=== PATIENT | female | born 1995 | race Caucasian/White ===

== ENCOUNTER 2016-06-24 09:50 | Emergency (ER) | payer OTHER ==
[2016-06-24] MEDS ORDERED: METOCLOPRAMIDE 5 MG/ML 2 ML VIAL IVP STA (10:15)
[2016-06-24] MEDS ORDERED: SODIUM CHLORIDE 0.9% 2,000 ML IV STA (10:15)
--- NOTE | 2016-06-24 10:37 | ED ---
Nausea/Vomiting/Diarrhea HPI - General Chief complaint: Nausea/Vomiting/Diarrhea Stated complaint: vomiting, , x 7 days Time Seen by Provider: 06/24/16 10:13 Source: patient, RN notes reviewed Mode of arrival: ambulatory Limitations: no limitations - History of Present Illness Initial comments: 21-year-old female presents emergency Department chief complain nausea vomiting . Patient states that she is A0 and currently approximately 12 weeks . Patient states that she is currently seeing Dr. Rollins and has had an appointment with him. Patient states that she's had nausea vomiting other pregnancies. Patient states that she had some leftover antinausea medication at home which was helping but states that she is out. Patient denies any vaginal bleeding or vaginal discharge. She states she has no lower abdominal pain no abdominal cramping. Patient states that her stomach is just very upset and she says she drinks in it comes back up. Patient has fever, chills, chest pain, back pain. Patient states she is concerned about possible dehydration. - Related Data Previous Rx's Medication Instructions Recorded Metoclopramide [Reglan] 10 mg PO TID PRN #15 tab 06/24/16 Allergies Allergy/AdvReac Type Severity Reaction Status Date / Time bacitracin Allergy Rash/Hives Verified 06/24/16 11:48 [From Neosporin ([id number])] bacitracin zinc Allergy Rash/Hives Verified 06/24/16 11:48 [From Neosporin ([id number])] neomycin [Neomycin] Allergy Rash/Hives Verified 06/24/16 11:48 neomycin sulfate Allergy Rash/Hives Verified 06/24/16 11:48 [From Neosporin ([id number])] polymyxin B Allergy Rash/Hives Verified 06/24/16 11:48 [From Neosporin ([id number])] any generic pain meds Allergy Itching Uncoded 06/24/16 09:59 Review of Systems ROS Statement: Those systems with pertinent positive or pertinent negative responses have been documented in the HPI. ROS Other: All systems not noted in ROS Statement are negative. Past Medical History Past Medical History: Asthma Additional Past Medical History / Comment(s): PRESENTLY 16 WEEKS History of Any Multi-Drug Resistant Organisms: None Reported Past Surgical History: Back Surgery Past Anesthesia/Blood Transfusion Reactions: Motion Sickness, Postoperative Nausea & Vomiting (PONV) Past Psychological History: Anxiety, Depression Smoking Status: Never smoker Past Alcohol Use History: None Reported Past Drug Use History: None Reported General Exam Limitations: no limitations General appearance: alert, in no apparent distress ENT exam: Present: mucous membranes moist Respiratory exam: Present: normal lung sounds bilaterally. Absent: respiratory distress, wheezes, rales, rhonchi, stridor Cardiovascular Exam: Present: regular rate, normal rhythm, normal heart sounds. Absent: systolic murmur, diastolic murmur, rubs, gallop, clicks GI/Abdominal exam: Present: soft, tenderness (Mild epigastric), normal bowel sounds. Absent: distended, guarding, rebound, rigid Back exam: Absent: CVA tenderness (R), CVA tenderness (L) Neurological exam: Present: alert, oriented X3, CN II-XII intact Skin exam: Present: warm, dry, intact, normal color. Absent: rash Course Vital Signs 06/24/16 09:55 Temperature 96.7 F L Pulse Rate 92 Respiratory 18 Rate Blood Pressure 113/81 O2 Sat by Pulse 100 Oximetry Medical Decision Making - Medical Decision Making 21-year-old female presents emergency department for nausea vomiting . Patient states she is feeling much improved after antiemetics, fluids. Patient has no abdominal pain, cramping or any vaginal bleeding. Patient has OB /RESPITE COORDINATOR Dr. Rollins. Patient be discharged with Reglan return parameters were discussed. - Lab Data Result diagrams: 06/24/16 10:27 06/24/16 10:27 Lab Results 06/24/16 06/24/16 06/24/16 Range/Units 10:27 10:27 11:18 WBC 14.6 H (3.8-10.6) k/uL RBC 4.92 (3.80-5.40) m/uL Hgb 14.1 (11.4-16.0) gm/dL Hct 42.1 (34.0-46.0) % MCV 85.6 (80.0-100.0) fL MCH 28.6 (25.0-35.0) pg MCHC 33.4 (31.0-37.0) g/dL RDW 14.6 (11.5-15.5) % Plt Count 343 (150-450) k/uL Neutrophils % 87 % Lymphocytes % 7 % Monocytes % 4 % Eosinophils % 0 % Basophils % 0 % Neutrophils # 12.7 H (1.3-7.7) k/uL Lymphocytes # 1.0 (1.0-4.8) k/uL Monocytes # 0.6 (0-1.0) k/uL Eosinophils # 0.0 (0-0.7) k/uL Basophils # 0.0 (0-0.2) k/uL Sodium 137 (137-145) mmol/L Potassium 4.1 (3.5-5.1) mmol/L Chloride 103 (98-107) mmol/L Carbon Dioxide 20 L (22-30) mmol/L Anion Gap 14 mmol/L BUN 9 (7-17) mg/dL Creatinine 0.65 (0.52-1.04) mg/dL Est GFR (MDRD) Af Amer >60 (>60 ml/min/1.73 sqM) Est GFR (MDRD) Non-Af >60 (>60 ml/min/1.73 sqM) Glucose 104 H (74-99) mg/dL Calcium 9.4 (8.4-10.2) mg/dL Total Bilirubin 0.7 (0.2-1.3) mg/dL AST 22 (14-36) U/L ALT 18 (9-52) U/L Alkaline Phosphatase 80 (38-126) U/L Total Protein 7.1 (6.3-8.2) g/dL Albumin 3.7 (3.5-5.0) g/dL Amylase 48 (30-110) U/L Lipase 56 (23-300) U/L Urine Color Yellow Urine Appearance Cloudy H (Clear) Urine pH 6.0 (5.0-8.0) Ur Specific [place] 1.028 (1.001-1.035) Urine Protein 1+ H (Negative) Urine Glucose (UA) Negative (Negative) Urine Ketones 4+ H (Negative) Urine Blood Trace H (Negative) Urine Nitrite Negative (Negative) Urine Bilirubin 1+ H (Negative) Urine Urobilinogen 2.0 (<2.0) mg/dL Ur Leukocyte Esterase Negative (Negative) Urine RBC 6 H (0-5) /hpf Urine WBC 1 (0-5) /hpf Ur Squamous Epith Cells 13 H (0-4) /hpf Urine Mucus Moderate H (None) /hpf Disposition Clinical Impression: Mild dehydration, Nausea/vomiting in Disposition: HOME SELF-CARE Condition: Stable Instructions: Acute Nausea and Vomiting (ED) Additional Instructions: Please return to the Emergency Department if symptoms worsen or any other concerns. Prescriptions: Metoclopramide [Reglan] 10 mg PO TID PRN #15 tab PRN Reason: GERD Referrals: None,Stated [Primary Care Provider] - 1-2 days Time of Disposition: 12:20
[2016-06-24 10:41] LABS: Basophils % (A) 0 %; CH 29.3; CHCM 34.3; Eosinophils % (A) 0 %; HCT 42.1 % (34.0-46.0); HDW 2.49; HGB 14.1 gm/dL (11.4-16.0); Luc # (Auto) 0.29; Luc % (Auto) 2; Lymphocytes % (A) 7 %; MCH 28.6 pg (25.0-35.0); MCHC 33.4 g/dL (31.0-37.0); MCV 85.6 fL (80.0-100.0); Monocytes # (A) 0.6 k/uL (0-1.0); Monocytes % (A) 4 %; Neutrophils # (A) 12.7 k/uL (1.3-7.7); Neutrophils % (A) 87 %; RBC 4.92 m/uL (3.80-5.40); RDW 14.6 % (11.5-15.5); WBC 14.6 k/uL (3.8-10.6); WBC (Perox) 14.99
[2016-06-24 10:50] LABS: ALT 18 U/L (9-52); AST 22 U/L (14-36); Alkaline Phosphatase 80 U/L (38-126); Amylase 48 U/L (30-110); Anion Gap 14 mmol/L; Blood Urea Nitrogen 9 mg/dL (7-17); Calcium 9.4 mg/dL (8.4-10.2); Carbon Dioxide 20 mmol/L (22-30); Chloride 103 mmol/L (98-107); Glucose 104 mg/dL (74-99); Non-African American GFR(MDRD) >60 (>60 ml/min/1.73 sqM); Potassium 4.1 mmol/L (3.5-5.1); Sodium 137 mmol/L (137-145); Total Bilirubin 0.7 mg/dL (0.2-1.3); Total Protein 7.1 g/dL (6.3-8.2)
[2016-06-24 11:48] LABS: Appearance,Urine Cloudy (Clear); Bilirubin,Urine 1+ (Negative); Glucose,Urine (UA) Negative (Negative); Ketones,Urine 4+ (Negative); Leukocyte Esterase,Urine Negative (Negative); Mucus,Urine Moderate /hpf; Nitrite,Urine Negative (Negative); Particle Count 9905; Protein,Urine 1+ (Negative); RBC,Urine 6 /hpf (0-5); Specific Gravity,Urine 1.028 (1.001-1.035); Squamous Epithelial Cell,Urine 13 /hpf (0-4); UA Billing (MACRO vs. MICRO) MICRO; WBC,Urine 1 /hpf (0-5)
[2016-06-24] MEDS ORDERED: SODIUM CHLORIDE 0.9% 1,000 ML IV ONE (11:59)
[2016-06-24 13:16] VITALS: BP 128/70; PULSE 69; RESP 16; TEMP 98.7
== END 2016-06-24 13:15 | disposition home or self-care (01) ==
LOC: EC 09:50
DX: O99.281 Endocrine, nutritional and metabolic diseases complicating pregnancy, first trimester (principal); E86.0 Dehydration; Z3A.12 12 weeks gestation of pregnancy; Z88.1 Allergy status to other antibiotic agents; Z88.6 Allergy status to analgesic agent; Z88.8 Allergy status to other drugs, medicaments and biological substances
CPT/HCPCS: 36415; 80053; 82150; 83690; 85025; 81001; 99284; 96374; 96361 ×3; J2765

== ENCOUNTER 2016-09-13 08:03 | Outpatient (CLI) | payer OTHER ==
[2016-09-13 09:21] LABS: Appearance,Urine Clear (Clear); Bacteria,Urine Rare /hpf; Bilirubin,Urine Negative (Negative); Glucose,Urine (UA) Negative (Negative); Ketones,Urine 2+ (Negative); Leukocyte Esterase,Urine Small (Negative); Nitrite,Urine Negative (Negative); PH, Urine 8.5 (5.0-8.0); Particle Count 2342; Protein,Urine Trace (Negative); RBC,Urine 5 /hpf (0-5); Specific Gravity,Urine 1.014 (1.001-1.035); Squamous Epithelial Cell,Urine 1 /hpf (0-4); UA Billing (MACRO vs. MICRO) MICRO; Urobilinogen,Urine <2.0 mg/dL (<2.0); WBC,Urine 1 /hpf (0-5)
[2016-09-13 09:53] VITALS: BP 118/57; PULSE 96; RESP 16; TEMP 97.8
--- NOTE | 2016-09-13 09:59 | P.MSEPDOC ---
Presenting Problems - Arrival Data Date of Arrival on Unit: 09/13/16 Time of Arrival on Unit: 08:00 Mode of Transport: Wheelchair - Complaint Comment: vomiting Medical History - Information : 3 Para: 2 Term: 2 : 0 Abortions: Spontaneous or Elective: 0 Number of Living Children: 2 - Gestational Age Expected Date of Delivery: 12/31/16 Gestational Age by JOE (wks/days): 24 Weeks and 3 Days Review of Systems - Review of Systems Constitutional: No problems Breast: No problems ENT: No problems Cardiovascular: No problems Respiratory: No problems Gastrointestinal: No problems Genitourinary: No problems Musculoskeletal: No problems Neurological: No problems Skin: No problems Vital Signs - Temperature Temperature: 97.8 F Temperature Source: Oral - Pulse Pulse Oximetery Pulse Rate: 96 Pulse Assessment Method: Pulse Oximetry - Respirations Respiratory Rate: 16 Oxygen Delivery Method: Room Air - Blood Pressure Right Arm Blood Pressure: 118/57 Blood Pressure Mean: 77 Blood Pressure Source: Automatic Cuff Medical Screen Scoring (Pre) - Cervical Exam Dilation: Exam Deferred - Uterine Contractions Frequency: N/A Duration: N/A Intensity: N/A - Maternal Vital Signs Maternal Temperature: N/A Maternal Blood Pressure: N/A Maternal Respirations: N/A - Maternal Trauma Maternal Trauma: N/A - Assessment Heart Rate - NICHD Category: Category I (Normal) = 0 - Total Score Total Score (Pre): 0 - Level of Risk Level of Risk: Low (0-5) Physician Notification (Pre) - Physician Notified Physician Notified Date: 09/13/16 Physician Notified Time: 08:32 Physician/Practitioner Notifed:: erasto Spoke With: bahman Botello Order Received: Yes - Notification Comment Comment: pasucal bolaños. Physician Notification (Post) - Physician Notified Physician Notified Date: 09/13/16 Physician Notified Time: 09:53 Physician/Practitioner Notified:: erasto Spoke With: erasto Botello Order Received: Yes - Notification Comment Comment: mami results reviewed by dr maurer. oral hydration and follow up with Disposition - Disposition OB Disposition: Discharge to home Discharge Date: 09/13/16 Discharge Time: 09:54 I agree with the RN Medical Screening Exam: Yes Risk & Benefit of care provided described in d/c instruction: Yes Diagnosis: RELATED CONDITIONS, UNSPECIFIED, SECOND TRIMESTER
== END 2016-09-13 09:55 | disposition home or self-care (01) ==
LOC: FBPOP 08:03
PROVIDERS: ATTEND Obstetrics & Gynecology
DX: O26.91 Pregnancy related conditions, unspecified, first trimester (principal); Z3A.24 24 weeks gestation of pregnancy
CPT/HCPCS: 81001; G0463; 99213

== ENCOUNTER 2017-07-19 17:50 | Emergency (ER) | payer OTHER ==
[2017-07-19] MEDS ORDERED: KETOROLAC 60 MG/2 ML VIAL IM STA (18:34)
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
--- NOTE | 2017-07-19 19:15 | XR ---
EXAMINATION TYPE: XR cervical spine limited DATE OF EXAM: 07/19/2017 COMPARISON: NONE HISTORY: Pain TECHNIQUE: 3 views FINDINGS: Vertebra have normal spacing and alignment. Posterior elements are intact. Atlantoaxial fac et joint is normal. There are no cervical ribs. IMPRESSION: Normal cervical spine exam.
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
[2017-07-19] MEDS ORDERED: CYCLOBENZAPRINE 10MG STARTER 3 TAB BTL PO STA (19:25)
--- NOTE | 2017-07-19 19:25 | XR ---
EXAMINATION TYPE: XR lumbar spine 2 or 3V DATE OF EXAM: 07/19/2017 COMPARISON: NONE HISTORY: Back pain TECHNIQUE: 3 views FINDINGS: The lumbar vertebra have normal alignment. Posterior elements are intact and disc spaces ar e normal. Sacroiliac joints appear normal. IMPRESSION: Normal lumbar spine.
[2017-07-19 19:48] VITALS: BP 127/81; PULSE 99; RESP 18; TEMP 98.1
== END 2017-07-19 19:45 | disposition home or self-care (01) ==
LOC: EC 17:50
DX: M62.830 Muscle spasm of back (principal); M54.2 Cervicalgia; F17.200 Nicotine dependence, unspecified, uncomplicated; Z88.1 Allergy status to other antibiotic agents; Z88.6 Allergy status to analgesic agent; Z98.890 Other specified postprocedural states; V49.20XA Unspecified car occupant injured in collision with unspecified motor vehicles in nontraffic accident, initial encounter; Y92.481 Parking lot as the place of occurrence of the external cause
CPT/HCPCS: 99284; 96372; 72070; 72040; 72100; J1885

== ENCOUNTER 2020-04-08 16:18 | Emergency (ER) | payer OTHER ==
[2020-04-08 16:34] VITALS: BP 130/89; PULSE 84; RESP 18; TEMP 97.9
[2020-04-08] MEDS ORDERED: HYDROmorphone 0.5 MG/0.5 ML SYRINGE IM STA (16:43)
--- NOTE | 2020-04-08 18:10 | ED ---
General Adult HPI - General Chief complaint: Extremity Injury, Upper Stated complaint: Fall, L side pain Time Seen by Provider: 04/08/20 16:35 Source: patient Mode of arrival: wheelchair Limitations: no limitations - History of Present Illness Initial comments: 24 year old female presents to the emergency room for a chief complaint of left shoulder pain. Patient reports that 2 days ago he fell off the side of her porch when her dog ran into her. Patient landed on her left side. Did not hit her head or neck. Patient states over the past 2 days she has had shoulder pain and left-sided upper back pain. Patient states the pain does not seem to be going away so she decided to be evaluated.Patient has no other complaints at this time including shortness of breath, chest pain, abdominal pain, nausea or vomiting, headache, or visual changes. - Related Data Previous Rx's Medication Instructions Recorded Metoclopramide [Reglan] 10 mg PO TID PRN #15 tab 06/24/16 Cyclobenzaprine [Flexeril] 10 mg PO TID #12 tab 07/19/17 Naproxen [EC-Naprosyn] 500 mg PO BID #20 tablet. 07/19/17 Allergies Allergy/AdvReac Type Severity Reaction Status Date / Time bacitracin Allergy Rash/Hives Verified 04/08/20 16:34 [From Neosporin ([id number])] bacitracin zinc Allergy Rash/Hives Verified 04/08/20 16:34 [From Neosporin ([id number]-[id number])] neomycin [Neomycin] Allergy Rash/Hives Verified 04/08/20 16:34 neomycin sulfate Allergy Rash/Hives Verified 04/08/20 16:34 [From Neosporin ([id number])] polymyxin B Allergy Rash/Hives Verified 04/08/20 16:34 [From Neosporin ([id number])] any generic pain meds Allergy Itching Uncoded 04/08/20 16:34 Review of Systems ROS Statement: Those systems with pertinent positive or pertinent negative responses have been documented in the HPI. ROS Other: All systems not noted in ROS Statement are negative. Past Medical History Past Medical History: Asthma Additional Past Medical History / Comment(s): PRESENTLY 16 WEEKS History of Any Multi-Drug Resistant Organisms: None Reported Past Surgical History: Back Surgery Past Anesthesia/Blood Transfusion Reactions: Motion Sickness, Postoperative Nausea & Vomiting (PONV) Past Psychological History: Anxiety, Depression Past Alcohol Use History: None Reported Past Drug Use History: Marijuana General Exam Limitations: no limitations General appearance: alert, anxious Head exam: Present: atraumatic, normal inspection Eye exam: Present: normal appearance, PERRL, EOMI. Absent: scleral icterus, conjunctival injection ENT exam: Present: normal exam, mucous membranes moist Neck exam: Present: normal inspection, full ROM. Absent: tenderness, meningismus, lymphadenopathy Respiratory exam: Present: normal lung sounds bilaterally. Absent: respiratory distress, wheezes, rales, rhonchi, stridor Cardiovascular Exam: Present: regular rate, normal rhythm, normal heart sounds. Absent: systolic murmur, diastolic murmur, rubs, gallop, clicks GI/Abdominal exam: Present: soft, normal bowel sounds. Absent: distended, tenderness, guarding, rebound, rigid Extremities exam: Present: other (Sensation intact in the left upper extremity, radial pulse 2+. No obvious deformity. 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 Absent: full ROM (Patient refuses to try to move the left shoulder secondary to pain.) Back exam: Present: paraspinal tenderness, vertebral tenderness (Mid thoracic spine tenderness generalized in nature as well as left-sided upper back ten derness). Absent: CVA tenderness (R), CVA tenderness (L) Neurological exam: Present: alert Course Vital Signs 04/08/20 16:28 Temperature 97.9 F Pulse Rate 84 Respiratory 18 Rate Blood Pressure 130/89 O2 Sat by Pulse 99 Oximetry Medical Decision Making - Medical Decision Making X-ray of the humerus shoulder thoracic spine and chest are negative. Neurovascular status intact left upper extremity. At this time patient will follow up with her orthopedic doctor. Referral given. She will take Motrin and Tylenol for pain. She'll return here for any worsening symptoms. - Lab Data Lab Results 04/08/20 04/08/20 Range/Units 17:01 17:01 Urine Color Yellow Urine Appearance Cloudy H (Clear) Urine pH 7.0 (5.0-8.0) Ur Specific [place] 1.021 (1.001-1.035) Urine Protein Negative (Negative) Urine Glucose (UA) Negative (Negative) Urine Ketones Negative (Negative) Urine Blood Negative (Negative) Urine Nitrite Negative (Negative) Urine Bilirubin Negative (Negative) Urine Urobilinogen <2.0 (<2.0) mg/dL Ur Leukocyte Esterase Negative (Negative) Urine RBC 3 (0-5) /hpf Urine WBC 3 (0-5) /hpf Ur Squamous Epith Cells 7 H (0-4) /hpf Amorphous Sediment Moderate H (None) /hpf Urine Mucus Rare H (None) /hpf Urine HCG, Qual Not Detected (Not Detectd) Disposition Clinical Impression: Shoulder pain, left Disposition: HOME SELF-CARE Condition: Good Instructions (If sedation given, give patient instructions): Shoulder Pain (ED) Additional Instructions: Please take Motrin and Tylenol for pain. Please follow-up with orthopedics. Return to the emergency room for any worsening symptoms. Is patient prescribed a controlled substance at d/c from ED?: No Referrals: Sarbjit Muniz MD [STAFF PHYSICIAN] - 1-2 days Time of Disposition: 18:38
--- NOTE | 2020-04-08 18:15 | XR ---
Result: Clinical History: Pain status post fall downstairs. Comparison: None available. Technique: 3 views of the left shoulder. 2 views of the left humerus. Findings: The bone mineralization is appropriate for age. No acute fracture or dislocation is seen. The acromioclavicular and glenohumeral joints are preserve d . The humeral head is well-seated in the glenoid. The visualized lung is clear. Impression: No acute osseous abnormality of the left shoulder or humerus.
--- NOTE | 2020-04-08 18:17 | XR ---
Result: History: Pain status post fall. Comparison: None available. Technique: 3 views of the thoracic spine. Findings: The bone mineralization is normal. There is no acute fracture or subluxation. The vertebral body heights are preserved throughout the i aditi thoracic spine. The vertebral elements are in anatomic alignment. The disc heights are mainta ined throughout the imaged spine. Impression: No acute fracture or subluxation of the thoracic spine.
--- NOTE | 2020-04-08 18:17 | XR ---
EXAMINATION TYPE: XR chest 1V DATE OF EXAM: 04/08/2020 COMPARISON: NONE HISTORY: Pain status post fall. TECHNIQUE: Single frontal view of the chest is obtained. FINDINGS: There is no focal air space opacity, pleural effusion, or pneumothorax seen. The cardiac silhouette size is within normal limits. The osseous structures are intact. IMPRESSION: No acute process.
[2020-04-08 18:30] LABS: Amorphous Sediment,Urine Moderate /hpf; Appearance,Urine Cloudy (Clear); Bilirubin,Urine Negative (Negative); Blood,Urine Negative (Negative); Color,Urine Yellow; Glucose,Urine (UA) Negative (Negative); Ketones,Urine Negative (Negative); Leukocyte Esterase,Urine Negative (Negative); Mucus,Urine Rare /hpf; Nitrite,Urine Negative (Negative); Protein,Urine Negative (Negative); RBC,Urine 3 /hpf (0-5); Specific Gravity,Urine 1.021 (1.001-1.035); Squamous Epithelial Cell,Urine 7 /hpf (0-4); Urobilinogen,Urine <2.0 mg/dL (<2.0); WBC,Urine 3 /hpf (0-5)
== END 2020-04-08 18:58 | disposition home or self-care (01) ==
LOC: EC 16:18
DX: M25.512 Pain in left shoulder (principal); M54.6 Pain in thoracic spine; Z88.8 Allergy status to other drugs, medicaments and biological substances; Z88.1 Allergy status to other antibiotic agents; Z88.2 Allergy status to sulfonamides; W10.9XXA Fall (on) (from) unspecified stairs and steps, initial encounter
CPT/HCPCS: 81001; 81025; 72072; 73030; 73060; 71045; 99283; 96372; J1170

== ENCOUNTER 2021-08-20 22:31 | Emergency (ER) | payer OTHER ==
[2021-08-20 22:38] VITALS: BP 136/97; PULSE 62; RESP 18; TEMP 98
[2021-08-20 22:41] LABS: Glucose,Whole Blood 139 mg/dL (75-99)
[2021-08-21] MEDS ORDERED: FAMOTIDINE 20 MG/2 ML VIAL IV STA (01:03)
[2021-08-21] MEDS ORDERED: KETOROLAC 15 MG/ML 1 ML VIAL IVP STA (01:03)
[2021-08-21] MEDS ORDERED: ONDANSETRON 4 MG/2 ML VIAL IVP STA (01:03)
[2021-08-21] MEDS ORDERED: SODIUM CHLORIDE 0.9% 1,000 ML IV STA (01:03)
[2021-08-21 02:24] LABS: Basophils # (A) 0.1 k/uL (0-0.2); Basophils % (A) 1 %; Eosinophils % (A) 0 %; HCT 49.3 % (34.0-46.0); HGB 16.1 gm/dL (11.4-16.0); Lymphocytes # (A) 0.4 k/uL (1.0-4.8); Lymphocytes % (A) 3 %; MCH 28.9 pg (25.0-35.0); MCHC 32.6 g/dL (31.0-37.0); MCV 88.5 fL (80.0-100.0); Mean Platelet Volume 7.3; Monocytes # (A) 0.8 k/uL (0-1.0); Monocytes % (A) 6 %; Neutrophils # (A) 11.8 k/uL (1.3-7.7); Neutrophils % (A) 88 %; Platelet Count 281 k/uL (150-450); RBC 5.57 m/uL (3.80-5.40); RDW 12.9 % (11.5-15.5); WBC 13.4 k/uL (3.8-10.6)
--- NOTE | 2021-08-21 02:30 | ED ---
Abdominal Pain HPI - General Chief Complaint: Abdominal Pain Stated Complaint: Weakness/Vomiting Time Seen by Provider: 08/21/21 00:51 Source: patient, RN notes reviewed Mode of arrival: wheelchair Limitations: no limitations - History of Present Illness Initial Comments: This is a 26-year-old female presents emergency department for abdominal pain, nausea, vomiting, and feeling generally unwell. States the symptoms have been present for a few days. Patient is very groggy and slow to answer questions on examination. She does not appear to be in any significant distress on examination. Denies any fevers, chills, sore throat, cough, dyspnea, chest pain, palpitations, diarrhea, back pain, or headaches. MD Complaint: abdominal pain Onset/Timin -: days(s) Location: diffuse - Related Data Previous Rx's Medication Instructions Recorded Metoclopramide [Reglan] 10 mg PO TID PRN #15 tab 06/24/16 Cyclobenzaprine [Flexeril] 10 mg PO TID #12 tab 07/19/17 Naproxen [EC-Naprosyn] 500 mg PO BID #20 tablet. 07/19/17 Ondansetron Odt [Zofran Odt] 4 mg PO Q8HR PRN #20 tab 08/21/21 Allergies Allergy/AdvReac Type Severity Reaction Status Date / Time bacitracin Allergy Rash/Hives Verified 04/08/20 16:34 [From Neosporin ([id number])] bacitracin zinc Allergy Rash/Hives Verified 04/08/20 16:34 [From Neosporin ([id number])] neomycin [Neomycin] Allergy Rash/Hives Verified 04/08/20 16:34 neomycin sulfate Allergy Rash/Hives Verified 04/08/20 16:34 [From Neosporin ([id number])] polymyxin B Allergy Rash/Hives Verified 04/08/20 16:34 [From Neosporin ([id number])] any generic pain meds Allergy Itching Uncoded 04/08/20 16:34 Review of Systems ROS Statement: Those systems with pertinent positive or pertinent negative responses have been documented in the HPI. ROS Other: All systems not noted in ROS Statement are negative. Past Medical History Past Medical History: Asthma Additional Past Medical History / Comment(s): PRESENTLY 14 WEEKS History of Any Multi-Drug Resistant Organisms: None Reported Past Surgical History: Back Surgery Past Anesthesia/Blood Transfusion Reactions: Motion Sickness, Postoperative Nausea & Vomiting (PONV) Past Psychological History: Anxiety, Depression Smoking Status: Unknown if ever smoked Past Alcohol Use History: None Reported Past Drug Use History: Marijuana General Exam Limitations: no limitations General appearance: alert, in distress Head exam: Present: atraumatic, normocephalic, normal inspection Respiratory exam: Present: normal lung sounds bilaterally. Absent: respiratory distress, wheezes, rales, rhonchi, stridor Cardiovascular Exam: Present: regular rate, normal rhythm, normal heart sounds. Absent: systolic murmur, diastolic murmur, rubs, gallop, clicks GI/Abdominal exam: Present: soft, normal bowel sounds. Absent: distended, tenderness, guarding, rebound, rigid Neurological exam: Present: alert, oriented X3, CN II-XII intact Psychiatric exam: Present: normal affect, normal mood Skin exam: Present: warm, dry, intact, normal color. Absent: rash Course Vital Signs 08/20/21 22:35 Temperature 98.0 F Pulse Rate 62 Respiratory 18 Rate Blood Pressure 136/97 O2 Sat by Pulse 98 Oximetry Medical Decision Making - Medical Decision Making This is a 26-year-old female who presents to the emergency department for nausea, vomiting, abdominal pain, and a general feeling of being unwell. Lab work reveals an elevated white blood cell count, which may be reactive or related to infection. Patient also noted to test positive for influenza A. She was treated with IV fluids, Zofran, Toradol, and Benadryl in the emergency department. She is out of the timeframe where Tamiflu can be prescribed. Upon reevaluation, patient states that she felt better. Patient given starter pack for Zofran, and prescription for Zofran was sent to her pharmacy. Return precautions reviewed in depth, the patient is instructed to return to the emergency department with any new, worsening, or concerning symptoms. Patient verbalized understanding. This case was discussed in detail with the attending ED physician. Presentation, findings, and treatment plan discussed in detail as well. - Lab Data Result diagrams: 08/21/21 01:39 08/21/21 01:39 Lab Results 08/20/21 08/21/21 08/21/21 Range/Units 22:38 01:38 01:39 WBC 13.4 H (3.8-10.6) k/uL RBC 5.57 H (3.80-5.40) m/uL Hgb 16.1 H (11.4-16.0) gm/dL Hct 49.3 H (34.0-46.0) % MCV 88.5 (80.0-100.0) fL MCH 28.9 (25.0-35.0) pg MCHC 32.6 (31.0-37.0) g/dL RDW 12.9 (11.5-15.5) % Plt Count 281 (150-450) k/uL MPV 7.3 Neutrophils % 88 % Lymphocytes % 3 % Monocytes % 6 % Eosinophils % 0 % Basophils % 1 % Neutrophils # 11.8 H (1.3-7.7) k/uL Lymphocytes # 0.4 L (1.0-4.8) k/uL Monocytes # 0.8 (0-1.0) k/uL Eosinophils # 0.0 (0-0.7) k/uL Basophils # 0.1 (0-0.2) k/uL Sodium (137-145) mmol/L Potassium (3.5-5.1) mmol/L Chloride (98-107) mmol/L Carbon Dioxide (22-30) mmol/L Anion Gap mmol/L BUN (7-17) mg/dL Creatinine (0.52-1.04) mg/dL Est GFR (CKD-EPI)AfAm (>60 ml/min/1.73 sqM) Est GFR (CKD-EPI)NonAf (>60 ml/min/1.73 sqM) Glucose (74-99) mg/dL POC Glucose (mg/dL) 139 H (75-99) mg/dL POC Glu [employer] ID Odilon Mckinley Calcium (8.4-10.2) mg/dL Total Bilirubin (0.2-1.3) mg/dL AST (14-36) U/L ALT (4-34) U/L Alkaline Phosphatase (38-126) U/L Total Protein (6.3-8.2) g/dL Albumin (3.5-5.0) g/dL Amylase (30-110) U/L Lipase (23-300) U/L Coronavirus (PCR) Not Detected (Not Detectd) Influenza Type A RNA (Not Detectd) Influenza Type B (PCR) (Not Detectd) 08/21/21 08/21/21 Range/Units 01:39 01:39 WBC (3.8-10.6) k/uL RBC (3.80-5.40) m/uL Hgb (11.4-16.0) gm/dL Hct (34.0-46.0) % MCV (80.0-100.0) fL MCH (25.0-35.0) pg MCHC (31.0-37.0) g/dL RDW (11.5-15.5) % Plt Count (150-450) k/uL MPV Neutrophils % % Lymphocytes % % Monocytes % % Eosinophils % % Basophils % % Neutrophils # (1.3-7.7) k/uL Lymphocytes # (1.0-4.8) k/uL Monocytes # (0-1.0) k/uL Eosinophils # (0-0.7) k/uL Basophils # (0-0.2) k/uL Sodium 136 L (137-145) mmol/L Potassium 3.8 (3.5-5.1) mmol/L Chloride 101 (98-107) mmol/L Carbon Dioxide 20 L (22-30) mmol/L Anion Gap 15 mmol/L BUN 14 (7-17) mg/dL Creatinine 0.83 (0.52-1.04) mg/dL Est GFR (CKD-EPI)AfAm >90 (>60 ml/min/1.73 sqM) Est GFR (CKD-EPI)NonAf >90 (>60 ml/min/1.73 sqM) Glucose 105 H (74-99) mg/dL POC Glucose (mg/dL) (75-99) mg/dL POC Glu Executive [employer]iter ID Calcium 9.1 (8.4-10.2) mg/dL Total Bilirubin 0.5 (0.2-1.3) mg/dL AST 39 H (14-36) U/L ALT 28 (4-34) U/L Alkaline Phosphatase 114 (38-126) U/L Total Protein 7.9 (6.3-8.2) g/dL Albumin 4.5 (3.5-5.0) g/dL Amylase 58 (30-110) U/L Lipase 68 (23-300) U/L Coronavirus (PCR) (Not Detectd) Influenza Type A RNA Detected H (Not Detectd) Influenza Type B (PCR) Not Detected (Not Detectd) Disposition Clinical Impression: Influenza A, Nausea and vomiting Disposition: HOME SELF-CARE Instructions (If sedation given, give patient instructions): Influenza (ED), Acute Nausea and Vomiting (ED), Abdominal Pain (ED) Additional Instructions: Return to the emergency department with any new, worsening, or concerning symptoms. Take the Zofran up to every 8hrs as needed for nausea and vomiting. Continue with symptomatic management, including remaining well-hydrated and alternating with Tylenol and ibuprofen as needed for pain and fevers. Follow up with your primary care provider in 1-2 days. Prescriptions: Ondansetron Odt [Zofran Odt] 4 mg PO Q8HR PRN #20 tab PRN Reason: Nausea And Vomiting Is patient prescribed a controlled substance at d/c from ED?: No Referrals: None,Stated [Primary Care Provider] - 1-2 days
[2021-08-21 02:40] LABS: ALT 28 U/L (4-34); AST 39 U/L (14-36); African American GFR (CKD) >90 (>60 ml/min/1.73 sqM); Albumin 4.5 g/dL (3.5-5.0); Alkaline Phosphatase 114 U/L (38-126); Amylase 58 U/L (30-110); Anion Gap 15 mmol/L; Blood Urea Nitrogen 14 mg/dL (7-17); Calcium 9.1 mg/dL (8.4-10.2); Carbon Dioxide 20 mmol/L (22-30); Chloride 101 mmol/L (98-107); Glucose 105 mg/dL (74-99); Lipase 68 U/L (23-300); Non-African American GFR(CKD) >90 (>60 ml/min/1.73 sqM); Potassium 3.8 mmol/L (3.5-5.1); Sodium 136 mmol/L (137-145); Total Bilirubin 0.5 mg/dL (0.2-1.3); Total Protein 7.9 g/dL (6.3-8.2)
[2021-08-21] MEDS ORDERED: ONDANSETRON 4 MG ODT STARTER PACK 2 TAB BTL PO STA (03:03)
== END 2021-08-21 03:33 | disposition home or self-care (01) ==
LOC: EC 22:31
DX: Z20.822 Contact with and (suspected) exposure to COVID-19 (principal); R11.2 Nausea with vomiting, unspecified; J10.1 Influenza due to other identified influenza virus with other respiratory manifestations; J45.909 Unspecified asthma, uncomplicated; Z88.1 Allergy status to other antibiotic agents; Z88.8 Allergy status to other drugs, medicaments and biological substances
CPT/HCPCS: 36415 ×2; 80053; 82150; 83690; 85025; 84702; 87502; 87635; 99284; 96374; 96375; J2405; J1885; S0119

== ENCOUNTER 2022-09-14 09:56 | Emergency (ER) | payer OTHER ==
--- NOTE | 2022-09-14 10:17 | ED ---
General Adult HPI - General Chief complaint: Extremity Injury, Upper Stated complaint: Right Arm Injury Time Seen by Provider: 09/14/22 10:02 Source: patient, RN notes reviewed Mode of arrival: ambulatory Limitations: no limitations - History of Present Illness Initial comments: 27-year-old female presents emergency department chief complaint of right elbow pain x3 days. Patient states that she had a recent fall on Sunday and landed on her right side and is now having pain in her right elbow. She reports the pain is worse with movement of the elbow. Reports to taking tylenol and motrin for pain with minimal improvement. She reports no other injury. Patient states she is generally healthy and takes no daily medications. - Related Data Previous Rx's Medication Instructions Recorded Metoclopramide [Reglan] 10 mg PO TID PRN #15 tab 06/24/16 Cyclobenzaprine [Flexeril] 10 mg PO TID #12 tab 07/19/17 Naproxen [EC-Naprosyn] 500 mg PO BID #20 tablet. 07/19/17 Ondansetron Odt [Zofran Odt] 4 mg PO Q8HR PRN #20 tab 08/21/21 Allergies Allergy/AdvReac Type Severity Reaction Status Date / Time bacitracin Allergy Rash/Hives Verified 09/14/22 10:02 [From Neosporin ([id number])] bacitracin zinc Allergy Rash/Hives Verified 09/14/22 10:02 [From Neosporin ([id number])] neomycin [Neomycin] Allergy Rash/Hives Verified 09/14/22 10:02 neomycin sulfate Allergy Rash/Hives Verified 09/14/22 10:02 [From Neosporin ([id number])] polymyxin B Allergy Rash/Hives Verified 09/14/22 10:02 [From Neosporin ([id number])] any generic pain meds Allergy Itching Uncoded 09/14/22 10:02 Review of Systems ROS Statement: Those systems with pertinent positive or pertinent negative responses have been documented in the HPI. ROS Other: All systems not noted in ROS Statement are negative. Past Medical History Past Medical History: Asthma Additional Past Medical History / Comment(s): PRESENTLY 14 WEEKS History of Any Multi-Drug Resistant Organisms: None Reported Past Surgical History: Back Surgery Past Anesthesia/Blood Transfusion Reactions: Motion Sickness, Postoperative Nausea & Vomiting (PONV) Past Psychological History: Anxiety, Depression Smoking Status: Never smoker Past Alcohol Use History: Occasional Past Drug Use History: Marijuana General Exam Limitations: no limitations Course Vital Signs 09/14/22 09/14/22 09:59 11:46 Temperature 98.2 F 98 F Pulse Rate 77 74 Respiratory 18 16 Rate Blood Pressure 134/85 130/86 O2 Sat by Pulse 100 100 Oximetry Medical Decision Making - Medical Decision Making Was pt. sent in by a medical professional or institution (LAKISHA Dorsey, AVP, urgent care, hospital, or residential...) When possible be specific @ -No Did you speak to anyone other than the patient for history (EMS, parent, family, police, friend...)? What history was obtained from this source @ -No Did you review nursing and triage notes (agree or disagree)? Why? @ -I reviewed and agree with nursing and triage notes Were old charts reviewed (outside hosp., previous admission, EMS record, old EKG, old radiological studies, urgent care reports/EKG's, residential records)? Report findings @ -No old charts were reviewed Differential Diagnosis (chest pain, altered mental status, abdominal pain women, abdominal pain men, vaginal bleeding, weakness, fever, dyspnea, syncope, headache, dizziness, GI bleed, back pain, seizure, CVA, palpatations, mental health, musculoskeletal)? @ -Fall, elbow contusion, elbow fracture, elbow sprain EKG interpreted by me (3pts min.). @ -none X-rays interpreted by me (1pt min.). @ -X-ray shows no acute fracture or dislocation CT interpreted by me (1pt min.). @ -None done U/S interpreted by me (1pt. min.). @ -None done What testing was considered but not performed or refused? (CT, X-rays, U/S, labs)? Why? @ -None What meds were considered but not given or refused? Why? @ -None Did you discuss the management of the patient with other professionals (professionals i.e. LAKISHA Dorsey, AVP, lab, RT, psych nurse, social service manager, cardiothoracic physiotherapist, teacher, security vehicle patrol officer, case resolution specialist)? Give summary @ -No Was smoking cessation discussed for >3mins.? @ -No Was critical care preformed (if so, how long)? @ -No Were there social determinants of health that impacted care today? How? (Homelessness, low income, unemployed, alcoholism, drug addiction, transportation, low edu. Level, literacy, decrease access to med. care, detention, rehab)? @ -No Was there de-escalation of care discussed even if they declined (Discuss DNR or withdrawal of care, Hospice)? DNR status @ -No What co-morbidities impacted this encounter? (DM, HTN, Smoking, COPD, CAD, Cancer, CVA, ARF, Chemo, Hep., AIDS, mental health diagnosis, sleep apnea, morbid obesity)? @ -None Was patient admitted / discharged? Hospital course, mention meds given and route, prescriptions, significant lab abnormalities, going to OR and other pertinent info. @ -Discharged patient has no acute fracture dislocation patient has right elbow contusion, sprain. Patient with orthopedics if no improvement. Undiagnosed new problem with uncertain prognosis? @ -No Drug Therapy requiring intensive monitoring for toxicity (Heparin, Nitro, Insulin, Cardizem)? @ -No Were any procedures done? @ -No Diagnosis/symptom? @ -Right elbow contusion, sprain Acute, or Chronic, or Acute on Chronic? @ -Acute Uncomplicated (without systemic symptoms) or Complicated (systemic symptoms)? @ -Uncomplicated Side effects of treatment? @ -No Exacerbation, Progression, or Severe Exacerbation? @ -No Poses a threat to life or bodily function? How? (Chest pain, [place], [place], pneumonia, PE, COPD, DKA, ARF, appy, cholecystitis, CVA, Diverticulitis, Homicidal, Suicidal, threat to staff... and all critical care pts) @ -No Disposition Clinical Impression: Contusion of right elbow, Fall Disposition: HOME SELF-CARE Condition: Stable Instructions (If sedation given, give patient instructions): Elbow Sprain (ED) Additional Instructions: Please return to the Emergency Department if symptoms worsen or any other concerns. Is patient prescribed a controlled substance at d/c from ED?: No Referrals: None,Stated [Primary Care Provider] - 1-2 days Trent Gamez DO [Doctor of Osteopathic Medicine] - 1-2 days Time of Disposition: 11:19
--- NOTE | 2022-09-14 10:52 | XR ---
EXAMINATION TYPE: XR elbow complete RT DATE OF EXAM: 09/14/2022 COMPARISON: None HISTORY: 27-year-old female pain after injury, limited range of motion TECHNIQUE: 3 views FINDINGS: No elbow joint effusion. No acute fracture, subluxation, or dislocation seen. IMPRESSION: No acute osseous abnormality seen.
[2022-09-14 11:46] VITALS: BP 130/86; PULSE 74; RESP 16; TEMP 98
== END 2022-09-14 11:48 | disposition home or self-care (01) ==
LOC: EC 09:56
DX: S50.01XA Contusion of right elbow, initial encounter (principal); J45.909 Unspecified asthma, uncomplicated; F12.90 Cannabis use, unspecified, uncomplicated; Z86.59 Personal history of other mental and behavioral disorders; Z88.8 Allergy status to other drugs, medicaments and biological substances; Z88.1 Allergy status to other antibiotic agents; X50.9XXA Other and unspecified overexertion or strenuous movements or postures, initial encounter
CPT/HCPCS: 99283

== ENCOUNTER 2023-02-27 17:01 | Emergency (ER) | payer OTHER ==
[2023-02-27] MEDS ORDERED: KETOROLAC 15 MG/ML 1 ML VIAL IM STA (17:32)
[2023-02-27 17:40] VITALS: BP 136/89; PULSE 76; RESP 16; TEMP 98.3
--- NOTE | 2023-02-27 17:45 | ED ---
Back Pain HPI - General Chief Complaint: Back Pain/Injury Stated Complaint: Fall, L Leg Injury Time Seen by Provider: 02/27/23 17:25 Source: patient, RN notes reviewed Limitations: no limitations - History of Present Illness Initial Comments: This is a pleasant 27-year-old female who was sent in by urgent care for evaluation of back injury. On Sunday or Sunday of last week she slept on her porch and ended up falling onto her back. Patient states she first fell into the railing and hit her left hip area. Patient states the pain is in the left lower back does radiate in the left hip. Urinary retention and urinary incontinence. No bowel or bladder incontinence otherwise. No symptoms of saddle anesthesia. No headache, no fever or chills, no changes in vision or hearing, no sore throat or difficulty with speech, no neck pain, no chest pain or shortness of breath, no abdominal pain, no nausea or vomiting, no changes in urination or bowel movements, no numbness or tingling, no extremity pain, no skin rashes or lesions. Past medical, surgical, social, and family history reviewed. MD Complaint: back injury - Related Data Previous Rx's Medication Instructions Recorded Metoclopramide [Reglan] 10 mg PO TID PRN #15 tab 06/24/16 Cyclobenzaprine [Flexeril] 10 mg PO TID #12 tab 07/19/17 Naproxen [EC-Naprosyn] 500 mg PO BID #20 tablet. 07/19/17 Ondansetron Odt [Zofran Odt] 4 mg PO Q8HR PRN #20 tab 08/21/21 Cyclobenzaprine [Flexeril] 10 mg PO TID PRN #20 tab 02/27/23 HYDROcodone/APAP 5-325MG [Bradford 1 tab PO Q6HR PRN 3 Days #12 tab 02/27/23 5-325] Allergies Allergy/AdvReac Type Severity Reaction Status Date / Time bacitracin Allergy Rash/Hives Verified 02/27/23 17:16 [From Neosporin ([id number])] bacitracin zinc Allergy Rash/Hives Verified 02/27/23 17:16 [From Neosporin ([id number])] neomycin [Neomycin] Allergy Rash/Hives Verified 02/27/23 17:16 neomycin sulfate Allergy Rash/Hives Verified 02/27/23 17:16 [From Neosporin ([id number])] polymyxin B Allergy Rash/Hives Verified 02/27/23 17:16 [From Neosporin ([id number])] any generic pain meds Allergy Itching Uncoded 02/27/23 17:16 Review of Systems ROS Statement: Those systems with pertinent positive or pertinent negative responses have been documented in the HPI. ROS Other: All systems not noted in ROS Statement are negative. Past Medical History Past Medical History: Asthma Additional Past Medical History / Comment(s): covid X 3 History of Any Multi-Drug Resistant Organisms: None Reported Past Surgical History: Back Surgery Past Anesthesia/Blood Transfusion Reactions: Motion Sickness, Postoperative Nausea & Vomiting (PONV) Past Psychological History: Anxiety, Depression Smoking Status: Never smoker Past Alcohol Use History: Occasional Past Drug Use History: Marijuana General Exam - General Exam Comments Initial Comments: And does not appear to be ill or toxic. Alert and oriented 4, cranial nerves II through XII grossly intact. Limitations: no limitations General appearance: in no apparent distress Head exam: Present: atraumatic, normocephalic, normal inspection Eye exam: Present: normal appearance, EOMI. Absent: scleral icterus, conjunctival injection, periorbital swelling ENT exam: Present: normal exam, mucous membranes moist, normal external ear exam Neck exam: Present: normal inspection. Absent: tenderness, meningismus, lymphadenopathy Respiratory exam: Present: normal lung sounds bilaterally. Absent: respiratory distress, wheezes, rales, rhonchi, stridor Cardiovascular Exam: Present: regular rate, normal rhythm, normal heart sounds. Absent: systolic murmur, diastolic murmur, rubs, gallop, clicks GI/Abdominal exam: Present: soft. Absent: distended, tenderness, guarding, rebound Extremities exam: Present: normal inspection, full ROM, normal capillary refill. Absent: tenderness, pedal edema, joint swelling, calf tenderness Back exam: Present: normal inspection, tenderness, paraspinal tenderness. Absent: full ROM, CVA tenderness (R), CVA tenderness (L), muscle spasm, vertebral tenderness, rash noted Neurological exam: Present: alert, oriented X3, CN II-XII intact, other (Gait sl ow and guarded, straight leg raise is negative, distal sensation intact, no saddle anesthesia. Note that this patient was seen in the hallway which limited the exam) Expanded Sensory exam: Lower Extremity Light Touch: Normal Motor strength exam: RLE: 5, LLE: 5 Eye Response: (4) open spontaneously Motor Response: (6) obeys commands Verbal Response: (5) oriented Psychiatric exam: Present: normal affect, normal mood Skin exam: Present: warm, dry, intact, normal color. Absent: rash Course Vital Signs 02/27/23 17:17 Temperature 98.3 F Pulse Rate 76 Respiratory 16 Rate Blood Pressure 136/89 O2 Sat by Pulse 99 Oximetry Medical Decision Making - Medical Decision Making Was pt. sent in by a medical professional or institution? @ -Sent in by urgent care, [employer] [facility] Did you speak to anyone other than the patient for history? @ -no Did you review nursing and triage notes? @ -agree Were old charts reviewed? @ -no Differential Diagnosis? @ -[Differential diagnosis includes but not limited to: Back contusion, lumbar strain, herniated disc, spinal fracture, does not appear to be consistent with cauda equina syndrome. Bladder incontinence. No urinary retention. Constipation. No radicular pain. Is not. Be consistent with a neurovascular issue otherwise. Neck consistent with infectious process.] EKG interpreted by me (3pts min.)? @ -[none] X-rays interpreted by me (1pt min.)? @ -[none] CT interpreted by me (1pt min.)? @ -[none] U/S interpreted by me (1pt. min.)? @ -[none] What testing was considered but not performed? (CT, X-rays, U/S, labs)? Why? @ Plain film x-rays of lumbosacral spine independently interpreted by me show no evidence of acute pathology. Alignment is normal. No spondylolysis or spondylolisthesis. No soft tissue changes. Interpretation is delayed. She did not want to wait for official reading. What meds were considered but not given? Why? @ -Considered home NSAIDs. However the patient has some mild sensitivity to this at higher doses. We'll have her continue [id number]. Did you discuss the management of the patient with other professionals? @ -no Did you reconcile home meds? @ -no Was smoking cessation discussed for >3mins.? @ -I discussed smoking cessation for greater than 3 minutes. The risks of smoking were discussed with the patient including but not limited to risks of cancer, stroke, coronary artery disease and COPD. Also discussed with the patient were multiple methods of quitting smoking. Lastly we discussed the financial costs of smoking. Was critical care preformed (if so, how long)? @ -no Were there social determinants of health that impacted care today? How? (Homelessness, low income, unemployed, alcoholism, drug addiction, transportation, low edu. Level, literacy, decrease access to med. care, shelter, rehab)? @ -None apparent Was there de-escalation of care discussed even if they declined? (Discuss DNR or withdrawal of care, Hospice)? @ -no What co-morbidities impacted this encounter? (DM, HTN, Smoking, COPD, CAD, Cancer, CVA, Hep., AIDS, mental health diagnosis, sleep apnea, morbid obesity)? @ -none Was patient admitted / discharged? @ -Discharged Undiagnosed new problem with uncertain prognosis? @ -[none] Drug Therapy requiring intensive monitoring for toxicity (Heparin, Nitro, Insulin, Cardizem)? @ -[none] Were any procedures done? @ -[none] Diagnosis/symptom? @ -Acute lumbar strain, back contusion Acute, or Chronic, or Acute on Chronic? @ -Acute Uncomplicated (without systemic symptoms) or Complicated (systemic symptoms)? @ -Uncomplicated Side effects of treatment? @ -[none] Exacerbation, Progression, or Severe Exacerbation] @ -Acute Poses a threat to life or bodily function? @ -[no] Patient was told to return to the ER for any signs or symptoms worsen. Told to return immediately if any other problems arise. All questions answered. Treatment plan discussed. Patient in agreement Every effort has been made to ensure accuracy of this dictation. However, due to the limitations of electronic medical records and dictation devices, errors in charting still occur. Patient given a short course of cyclobenzaprine and Bradford. Told to [facility]up with [facility]. See the Back Specialist. The case was discussed in detail with ED attending physician. Presentation, findings, treatment plan discussed in detail, Dr. Skelton Disposition Clinical Impression: Mechanical back pain, Contusion, back, Acute lumbar myofascial strain Disposition: HOME SELF-CARE Condition: Stable Instructions (If sedation given, give patient instructions): Acute Low Back Pain (ED) Additional Instructions: Do not drive or operate machinery while taking the acetaminophen/hydrocodone or the cyclobenzaprine. If the pain is not bad you can replace the medication with regular Tylenol. However don't take both together as they both have acetaminophen as the active ingredient. Heat 20 minutes on and off for times a day. Light walking. [facility] tomorrow morning to schedule follow-up appointment with the back specialist, Dr. Contreras Follow-up with your regular physician as directed. Return to the ER immediately if any symptoms worsen, new symptoms arise, or any other problems develop. Prescriptions: Cyclobenzaprine [Flexeril] 10 mg PO TID PRN #20 tab PRN Reason: Spasms HYDROcodone/APAP 5-325MG [Bradford 5-325] 1 tab PO Q6HR PRN 3 Days #12 tab PRN Reason: Pain Is patient prescribed a controlled substance at d/c from ED?: Yes When asked, does pt state using other controlled substances?: Yes If prescribed controlled substance>3 days was MAPS reviewed?: Prescribed <3 Days Referrals: Carloz Contreras DO [Doctor of Osteopathic Medicine] - 1-2 days Time of Disposition: 18:19
--- NOTE | 2023-02-27 18:20 | XR ---
EXAMINATION TYPE: XR lumbar spine 2 or 3V DATE OF EXAM: 02/27/2023 6:11 PM CLINICAL INDICATION:Female, 27 years old with history of Low back injury; H COMPARISON: None TECHNIQUE: XR lumbar spine 2 or 3V - Frontal and lateral views of the spine. FINDINGS: No evidence of any acute osseous pathology. No evidence of loss of vertebral body height i s seen. There is normal alignment of the lumbar vertebral bodies. No significant degeneration changes throughout the spine. IMPRESSION: 1. No acute fracture.
== END 2023-02-27 18:34 | disposition home or self-care (01) ==
LOC: EC 17:01
DX: S39.012A Strain of muscle, fascia and tendon of lower back, initial encounter (principal); J45.909 Unspecified asthma, uncomplicated; F12.90 Cannabis use, unspecified, uncomplicated; Z88.8 Allergy status to other drugs, medicaments and biological substances; Z86.59 Personal history of other mental and behavioral disorders; Z88.6 Allergy status to analgesic agent; W18.30XA Fall on same level, unspecified, initial encounter
CPT/HCPCS: 72100; 99284; 96372; J1885